=== PATIENT | female | born 1975 | race Caucasian/White ===

== ENCOUNTER 2022-09-10 09:37 | Emergency (ER) | payer MEDICAID | END 2022-09-10 10:27 | disposition home or self-care (01) | LOC: JP.ED 09:37 | DX: G89.4 Chronic pain syndrome (principal); M54.50 Low back pain, unspecified; F11.90 Opioid use, unspecified, uncomplicated; I10 Essential (primary) hypertension; J45.909 Unspecified asthma, uncomplicated; Z88.8 Allergy status to other drugs, medicaments and biological substances; Z88.5 Allergy status to narcotic agent; Z91.040 Latex allergy status; Z79.899 Other long term (current) drug therapy; Z72.0 Tobacco use | CPT/HCPCS: 99282; 99284 ==

== ENCOUNTER 2022-11-30 21:12 | Emergency (ER) | payer MEDICAID ==
[2022-11-30 22:15] LABS: ESTIMATED GFR 57 mL/min (>60)
[2022-11-30] MEDS ORDERED: Levothyroxine 25 MCG Tab PO ONE (23:41)
[2022-11-30] MEDS ORDERED: OLANZapine 5 MG Tab PO ONE (23:42)
[2022-12-01] MEDS ORDERED: Labetalol 20 MG/4 ML Syringe IVPUSH ONE (05:49)
[2022-12-01] MEDS ORDERED: OLANZapine 5 MG Tab PO ONE (06:45)
[2022-12-01] MEDS ORDERED: Levothyroxine 112 MCG Tab PO ONE (06:45)
[2022-12-01] MEDS ORDERED: traMADol 50 MG Tab PO PRN (08:40)
[2022-12-01] MEDS ORDERED: tiZANidine 2 MG Tab PO ONE (23:42)
== END 2022-12-01 13:53 ==
LOC: JP.ED 21:12
DX: F29 Unspecified psychosis not due to a substance or known physiological condition (principal); F22 Delusional disorders; F30.9 Manic episode, unspecified; E03.8 Other specified hypothyroidism; I10 Essential (primary) hypertension; G25.81 Restless legs syndrome; J45.909 Unspecified asthma, uncomplicated; Z79.899 Other long term (current) drug therapy; Z91.040 Latex allergy status; Z88.5 Allergy status to narcotic agent; Z88.8 Allergy status to other drugs, medicaments and biological substances; Z20.822 Contact with and (suspected) exposure to COVID-19
CPT/HCPCS: 36415; 80053; 80305; 81001; 84439; 84443; 85025; 87635; 99285; A9270; U0002